=== PATIENT | female | born 1980 | race Hispanic/Latino ===

== ENCOUNTER 2021-07-17 17:06 | Emergency (ER) | payer OTHER ==
[~2021-07-17] VITALS: Ht 152.4 cm; Wt 81.2 kg
[~2021-07-17 17:06] MED LIST: DICYCLOMINE HCL10 MG PO; OMEPRAZOLE40 MG PO
[2021-07-17] MEDS ORDERED: CASIRIVIMAB/IMDEVIMAB 10 ML in SODIUM CHLORIDE 0.9% 100 ML IV ONE ×4 (17:30)
[2021-07-17] MEDS ORDERED: SODIUM CHLORIDE 0.9% 100 ML ONE (17:34)
== END 2021-07-17 18:55 | disposition home or self-care (01) ==
LOC: ER 17:23
DX: U07.1 COVID-19 (principal); R05.9 Cough, unspecified
CPT/HCPCS: 99283; J7050

== ENCOUNTER → 2022-06-27 | Day surgery (SDC) | payer OTHER ==
[~2022-06-27] MED LIST changes: +ALLEGRA ALLERGY60 MG PO; +FENTANYL CITRATE/PF 100MCG/2 ML INJ ONE; +LIDOCAINE HCL 2% LOCAL INJ 5 ML SDV VIAL INJ ONE; +MIDAZOLAM HCL 2 MG/2 ML VIAL ONE; +POVIDONE IODINE 0.05% 0.05 % ML PO ONE; +PROPOFOL IV EMULSION 10 MG/ML 20 ML VIAL ONE
[2022-06-27 13:50] VITALS: BP 106/71
== END | disposition home or self-care (01) ==
LOC: OR 11:40
PROVIDERS: ATTEND Internal Medicine Gastroenterology
DX: Z12.11 Encounter for screening for malignant neoplasm of colon (principal); D12.4 Benign neoplasm of descending colon; K64.8 Other hemorrhoids; K21.9 Gastro-esophageal reflux disease without esophagitis; Z88.0 Allergy status to penicillin; Z68.36 Body mass index [BMI] 36.0-36.9, adult; Z80.0 Family history of malignant neoplasm of digestive organs
CPT/HCPCS: 36415; 45384; 84702; J2001; J2250; J2704; J3010; 45378